=== PATIENT | female | born 2000 | race Caucasian/White ===

== ENCOUNTER 2020-12-29 17:35 | Observation (INO) | payer MEDICAID ==
[~2020-12-29] VITALS: Ht 167 cm; Wt 62.1 kg
== END 2020-12-29 18:35 ==
LOC: MLD 17:35
PROVIDERS: ADMIT Obstetrics & Gynecology; ATTEND Obstetrics & Gynecology
DX: O26.893 Other specified pregnancy related conditions, third trimester (principal); R07.89 Other chest pain; O99.891 Other specified diseases and conditions complicating pregnancy; M25.511 Pain in right shoulder; M25.512 Pain in left shoulder; M79.641 Pain in right hand; M79.642 Pain in left hand; M79.602 Pain in left arm; M79.601 Pain in right arm; Z3A.30 30 weeks gestation of pregnancy
CPT/HCPCS: 59025; 81000; G0378

== ENCOUNTER 2020-12-29 18:40 | Emergency (ER) | payer MEDICAID ==
[~2020-12-29] VITALS: Ht 170.2 cm; Wt 69.9 kg
--- NOTE | 2020-12-29 18:40 | NUR ---
Patient transferred to bed 5 via wheelchair from L&D. RN evaluating the patient at bedside.
[2020-12-29 18:52] VITALS: BP 114/71
--- NOTE | 2020-12-29 18:54 | NUR ---
Dr. Degroot is evaluating the patient at bedside.
--- NOTE | 2020-12-29 18:57 | NUR ---
Dr. Degroot at bedside for US.
--- NOTE | 2020-12-29 19:20 | NUR ---
EKG PERFORMED AT BEDSIDE. EKG READS SINUS RHYTHM @ 83
[2020-12-29] MEDS ORDERED: ACETAMINOPHEN EXTRA STRENGTH 500 MG TAB PO ONE (19:25)
--- NOTE | 2020-12-29 19:28 | NUR ---
PT IS A 20 Y.O. FEMALE BIB SELF W/ C/O OF CHEST PAIN. PT STATES THE PAIN IS CURRENTLY 2/10 ON THE PAIN SCALE. PAIN IS NOT RADIATING. PT DENIES SOB OR DIFFICULTY BREATHING. DENIES ANY N/V/D. BREATHING IS UNLABORED. PT IS 28 WEEKS . DENIES ANY PMH. NKA. WILL CONTINUE TO MONITOR.
--- NOTE | 2020-12-29 20:35 | NUR ---
PT DENIES ANY PAIN. BREATHING IS UNLABORED. PT IS STABLE. NO COMPLAINTS AT THIS TIME. PT IS BEING DISCHARGED HOME. FAMILY IS WAITING IN THE CAR OUTSIDE.
[2020-12-29 20:36] VITALS: BP 114/71
--- NOTE | 2020-12-29 20:36 | NUR ---
Patient discharged with v/s stable. Written and verbal after care instructions given and explained. Patient verbalized understanding. Ambulatory with steady gait. All questions addressed prior to discharge. Advised to follow up with PMD.
== END 2020-12-29 20:36 | disposition home or self-care (01) ==
LOC: MED 18:40
DX: O26.893 Other specified pregnancy related conditions, third trimester (principal); R07.9 Chest pain, unspecified; Z3A.28 28 weeks gestation of pregnancy
CPT/HCPCS: 93005; 99284

== ENCOUNTER 2021-02-18 10:05 | Observation (INO) | payer MEDICAID ==
[~2021-02-18] VITALS: Ht 162 cm; Wt 75.3 kg
[2021-02-18 10:30] VITALS: BP 123/74
[2021-02-18] MEDS ORDERED: PNV91TAB8 PO (11:18)
[2021-03-11] MEDS ORDERED: NITR100C7 PO (23:23)
== END 2021-02-18 11:25 | disposition home or self-care (01) ==
LOC: MLD 10:05
PROVIDERS: ADMIT Obstetrics & Gynecology; ATTEND Obstetrics & Gynecology
DX: O26.893 Other specified pregnancy related conditions, third trimester (principal); R10.9 Unspecified abdominal pain; O99.891 Other specified diseases and conditions complicating pregnancy; M54.9 Dorsalgia, unspecified; Z3A.38 38 weeks gestation of pregnancy
CPT/HCPCS: 59025; G0378

== ENCOUNTER 2021-03-09 07:55 | Inpatient (IN) | payer OTHER, SELFPAY ==
[~2021-03-09] VITALS: Ht 162.6 cm; Wt 72.1 kg
[~2021-03-09 07:55] MED LIST: PNV91TAB8 PO
[2021-03-09 08:12] VITALS: BP 101/57
[2021-03-09] MEDS ORDERED: ACETAMINOPHEN EXTRA STRENGTH 500 MG TAB PO ONE (08:20)
--- NOTE | 2021-03-09 08:23 | NUR ---
Patient to bed 10. RN evaluating the patient at bedside.
--- NOTE | 2021-03-09 08:30 | NUR ---
UA sample walked to lab, handed to CPT. Derrick
--- NOTE | 2021-03-09 08:30 | NUR ---
PATIENT TO BED 10, REPORTS C/S 10 DAYS AGO AT [facility], DEVELOPED RIGHT SIDED BACK PAIN YESTERDAY ACCOMPANIED BY FEVER. DENIES BURNING OR URGENCY OF URINATION, C SECTION WOUND IS CLEAN AND DRY, DENIES ANY VAG DISCHARGE. SKIN IS HOT AND DRY, RESP EVEN AND UNLABORED, ABDOMEN IS SOFT, SUPPORTED BY BY ELASTIC BINDER. PATIENT IS AMBULATORY AND INDEPENDENT FOR CARE. DR AT BEDSIDE FOR EVAL, IV ACCESS OBTAINED, LABS AND CULTURES OBTAINED. DENIES MEDICAL HISTORY. BED IS IN LOW AND LOCKED POSITION, ONE SIDE RAIL UP FOR SAFETY.
[2021-03-09] MEDS ORDERED: KETOROLAC 15 MG/ML VIAL IVP ONE (08:45)
[2021-03-09] MEDS ORDERED: NACL 0.9% 1,000 ML IV ONE (08:45)
--- NOTE | 2021-03-09 08:53 | NUR ---
solar field service technician at bedside.
--- NOTE | 2021-03-09 09:10 | NUR ---
Blood sample and cultures collected ,walked to lab and handed to CPT. Derrick
[2021-03-09 09:19] LABS: APPEARANCE,URINE CLEAR (CLEAR); COLOR,URINE YELLOW (YELLOW)
[2021-03-09 09:20] LABS: BLOOD, URINE 3+ (NEGATIVE); PH,URINE 5.5 (5.0-9.0); UGLUCOSE NEGATIVE (NEGATIVE)
[2021-03-09 09:21] LABS: BILIRUBIN,URINE NEGATIVE (NEGATIVE); LEUKOCYTE ESTERASE ,URINE 2+ (NEGATIVE); NITRITE, URINE POSITIVE (NEGATIVE)
[2021-03-09 09:29] LABS: RBC,URINE 11-20 (MOD) /HPF (0-5); WBC,URINE >25 (MANY) /HPF (0-5)
[2021-03-09 09:33] LABS: BASOPHILS % (AUTO) 0.1 % (0.0-2.0); EOSINOPHILS # (AUTO) 0.1 K/uL (0-0.4); EOSINOPHILS % (AUTO) 0.5 % (0.0-4.0); HEMATOCRIT 39.4 % (36-48); HEMOGLOBIN 13.1 g/dL (12.0-16.0); LYMPHOCYTES # (AUTO) 1.1 K/uL (2.5-16.5); LYMPHOCYTES % (AUTO) 4.8 % (20.5-51.1); MEAN CORPUSCULAR HEMOGLOBIN 32 pg (27-31); MEAN CORPUSCULAR HGB CONC 33 g/dL (33-37); MEAN CORPUSCULAR VOLUME 94.5 fL (80-94); MONOCYTES # (AUTO) 1.8 K/uL (0.8-1.0); MONOCYTES % (AUTO) 8.2 % (1.7-9.3); NEUTROPHILS # (AUTO) 19.4 K/uL (1.8-7.7); NEUTROPHILS % (AUTO) 86.4 % (42.2-75.2); PLATELET COUNT (AUTO) 256 K/uL (140-450); RED BLOOD CELL COUNT(AUTO) 4.16 MIL/uL (4.20-5.40); RED CELL DISTRIBUTION WIDTH 13.3 % (11.6-13.7); WHITE BLOOD COUNT (AUTO) 22.4 K/uL (4.8-10.8)
[2021-03-09] MEDS ORDERED: cefTRIAXone 1,000 MG VIAL ONE (09:37)
--- NOTE | 2021-03-09 09:45 | NUR ---
TEMP NOW 98.6, IVF 0.9%NS INFUSING W/O, IV ABX AND TORADOL IVP ADMINISTERED. OBSERVED FOR NADR, NONE NOTED. PATIENT REPORTS FEELING BETTER AT THIS MOMENT.
[2021-03-09 09:48] LABS: ALBUMIN 3.4 g/dL (3.4-5.0); ANION GAP 17.3 (8-16); CARBON DIOXIDE 21.1 mmol/L (21-32); CREATININE 0.9 mg/dL (0.6-1.3); POTASSIUM 3.4 mmol/L (3.5-5.1); TOTAL BILIRUBIN 0.5 mg/dL (0.0-1.0)
[2021-03-09] MEDS ORDERED: NACL 0.9% 1,500 ML IV ONE (10:10)
[2021-03-09 10:34] LABS: PROTHROMBIN TIME 11.5 secs (10.8-13.4)
[2021-03-09] MEDS: NACL 0.9% 1,000 ML IV SCH (11:35)
[2021-03-09] MEDS ORDERED: POTASSIUM CHLORIDE 10 MEQ TABER PO PRN (11:35)
[2021-03-09] MEDS ORDERED: MAGNESIUM OXIDE 400 MG TAB PO PRN (11:35)
[2021-03-09] MEDS ORDERED: HYDROcodone/APAP 5/325 MG 1 TAB TAB PO PRN (11:35)
[2021-03-09] MEDS ORDERED: ONDANSETRON 4 MG/2 ML VIAL IVP PRN (11:35)
[2021-03-09] MEDS ORDERED: KCL 20 MEQ/WATER INJ PREMIX 200 ML IV PRN (11:35)
[2021-03-09] MEDS ORDERED: MORPHINE SULFATE 4 MG/ML SYR IVP PRN (11:35)
[2021-03-09] MEDS ORDERED: MAG SULF 2000 MG/WATER PREMIX 50 ML IV PRN (11:35)
--- NOTE | 2021-03-09 11:55 | NUR ---
ANA MILLER 18 SPEC WALKED TO LAB. PATIENT IS RESTING QUIETLY VSS, IS CURRENTLY AFEBRILE. IVF INFUSING TO CLEAR IV SITE, DENIES PAIN AT THIS TIME.
--- NOTE | 2021-03-09 13:00 | NUR ---
PATIENT BROUGHT BY ED NURSE IN WHEELCHAIR. PATIENT IS ALERT AND ORIENTED, ABLE TO MAKE NEEDS KNOWN. BREATHING EVEN AND UNLABORED ON RA. R AC 20G SL. DENIES PAIN AT THIS TIME. VITALS: TEMP 97.5 DEGREES FAHRENHEIT, BP 112/71, RR 18, HR 80. ORIENTED TO ROOM, CALL LIGHT WITHIN REACH, BED IN LOW POSITION. SAFETY MEASURES IN PLACE.
--- NOTE | 2021-03-09 13:02 | NUR ---
REPORT GIVEN TO BERNARDO VALDEZ
--- NOTE | 2021-03-09 13:18 | NUR ---
ADMITTED TO ROOM 119A MS. PT STABLE, ALL BELONGINGS WITH PT.
--- NOTE | 2021-03-09 15:12 | NUR ---
PATIENT REQUESTING TO LEAVE AMA, CONDITION AND RISKS EXPLAINED. PATIENT CONTINUES TO WANT TO GO HOME AMA. NOTIFIED.
[2021-03-09] MEDS: ACETAMINOPHEN 325 MG TAB PO PRN (15:59)
--- NOTE | 2021-03-09 15:59 | NUR ---
PRN TYLENOL ADMINISTERED FOR TEMP OF 101 DEGREES FAHRENHEIT. MED EDUCATION PROVIDED, PATIENT VERBALIZES UNDERSTANDING.
--- NOTE | 2021-03-09 17:21 | NUR ---
PRN MORPHINE ADMINISTERED FOR BACK PAIN, SEE PAIN ASSESSMENT NOTES. MED EDUCATION PROVIDED, PATIENT VERBALIZES UNDERSTANDING.
--- NOTE | 2021-03-09 19:30 | NUR ---
RECEIVED REPORT FROM AM SHIFT. PT AAOX4, VOICES NO C/O PAIN OR DISCOMFORT. WATCHING TV.
[2021-03-09 20:05] VITALS: BP 127/81
--- NOTE | 2021-03-09 23:30 | NUR ---
OOB TO BRP W/ STEADY GAIT. ASSESSED IVF INFUSION, PT DOES NOT WANT AN IV RESTART, IV AC LOCATION IS PARTIALLY OCCLUDING FLOW. PT EDUCATION ON ABSTINENCE, POST , TO AVOID INFECTION. VERBALIZED UNDERSTANDING AND ASKED QUESTIONS. WILL CONT TO MONITOR IV SITE.
[2021-03-10] MEDS: NACL 0.9% 1,000 ML IV SCH ×2 (00:05→03:26)
[2021-03-10 01:30] VITALS: BP 129/84
--- NOTE | 2021-03-10 01:30 | NUR ---
TEMP 99.5 ENC PO FLUID, GAVE CRANBERRY/ APPLE JUICE, A CUP OF WARM TEA W/ CRACKERS. EXPLAINED THE IMPORTANCE OF A FUNCTIONAL IV SITE, FOR THERAPEUTIC PURPOSE IN SUDANESE. PT VERBALIZED UNDERSTANDING AND AGREES TO NEW IV SITE.
[2021-03-10] MEDS: ACETAMINOPHEN 325 MG TAB PO PRN (01:32)
--- NOTE | 2021-03-10 02:30 | NUR ---
NEW IV SITED TO L MID FA, 22G. PT TOLERATED WELL, SITE INTACT W/O S/S OF INFILTRATION, POS FLUSH. OLD IV SITE (R AC) D/C'D W/ CATH TIP INTACT. IVF INFUSING AT 80 ML/HR W/ GOOD FLOW. PT TEMP IMPROVED TO 98.1 AT PRESENT
--- NOTE | 2021-03-10 05:00 | NUR ---
ON ROUNDS PT ASLEEP. RESP REG NON-LABORED. IVF INFUSING WELL. NO C/O PAIN OR DISCOMFORT PAIN MED EFFECTIVE.
[2021-03-10 05:27] LABS: BASOPHILS % (AUTO) 0.1 % (0.0-2.0); EOSINOPHILS # (AUTO) 0.2 K/uL (0-0.4); EOSINOPHILS % (AUTO) 1.3 % (0.0-4.0); HEMATOCRIT 36.4 % (36-48); HEMOGLOBIN 12.1 g/dL (12.0-16.0); LYMPHOCYTES # (AUTO) 1.8 K/uL (2.5-16.5); LYMPHOCYTES % (AUTO) 9.8 % (20.5-51.1); MEAN CORPUSCULAR HEMOGLOBIN 31 pg (27-31); MEAN CORPUSCULAR HGB CONC 33 g/dL (33-37); MEAN CORPUSCULAR VOLUME 94.6 fL (80-94); MONOCYTES # (AUTO) 1.7 K/uL (0.8-1.0); MONOCYTES % (AUTO) 9.5 % (1.7-9.3); NEUTROPHILS # (AUTO) 14.4 K/uL (1.8-7.7); NEUTROPHILS % (AUTO) 79.3 % (42.2-75.2); PLATELET COUNT (AUTO) 229 K/uL (140-450); RED BLOOD CELL COUNT(AUTO) 3.85 MIL/uL (4.20-5.40); WHITE BLOOD COUNT (AUTO) 18.1 K/uL (4.8-10.8)
[2021-03-10 05:49] LABS: PROTHROMBIN TIME 11.3 secs (10.8-13.4)
[2021-03-10 06:18] LABS: ALBUMIN 2.8 g/dL (3.4-5.0); ANION GAP 15.5 (8-16); CARBON DIOXIDE 20.8 mmol/L (21-32); CREATININE 0.6 mg/dL (0.6-1.3); MAGNESIUM 1.7 mg/dL (1.8-2.4); POTASSIUM 3.3 mmol/L (3.5-5.1); TOTAL BILIRUBIN 0.4 mg/dL (0.0-1.0)
--- NOTE | 2021-03-10 06:30 | NUR ---
ON ROUNDS PT ASLEEP EASILY AWAKENED, VOICES NO C/O PAIN OR DISCOMFORT.
--- NOTE | 2021-03-10 07:30 | NUR ---
PT RECEIVED FROM ASSOCIATE SOFTWARE DEVELOPER RN. PT RESTING IN BED. BREATHING IS SYMMETRICAL AND UNLABORED. EYES CLOSED. NO S.SX OF DISTRESS AT THIS TIME. CALL LIGHT WITHIN REACH. ALL SAFETY MEASURES ARE IN PLACE
[2021-03-10 08:00] VITALS: BP 113/71
--- NOTE | 2021-03-10 08:54 | NUR ---
MEDICATIONS GIVEN PER MD ORDER. PT EDUCATED VERBALIZED UNDERSTANDING. PT REFUSED COLACE. PT EDUCATED AND VERBALIZED UNDERSTANDING
--- NOTE | 2021-03-10 08:55 | NUR ---
MG 1.7 MG REPLACED, K+ 3.3. K+ REPLACED
[2021-03-10] MEDS ORDERED: DOCUSATE SODIUM 100 MG GELCAP PO SCH (09:00)
--- NOTE | 2021-03-10 09:03 | NUR ---
PATIENT HAS BEEN SCREENED AND CATEGORIZED LOW NUTRITION RISK. PATIENT WILL BE SEEN WITHIN 7 DAYS OF ADMISSION. 03/15/[address]
--- NOTE | 2021-03-10 10:38 | NUR ---
PT COMPLAINS SHE WANTS TO GO HOME. PATIENT EDUCATED AND VERBALIZED UNDERSTANDING. AWARE
--- NOTE | 2021-03-10 11:39 | NUR ---
PT RESTING IN BED. NO S/SX OF DISTRESS AT THIS TIME.
[2021-03-10] MEDS ORDERED: CEPH-588 PO (12:13)
[2021-03-10 12:40] VITALS: BP 113/71
--- NOTE | 2021-03-10 13:25 | NUR ---
PT DISCHARGE INSTRUCTIONS COMPLETE. PT EDUCATED AND VERBALIZED UNDERSTANDING. NO S/SX OF DISTRESS AT THIS TIME. SPOUSE AT BEDSIDE
--- NOTE | 2021-03-10 14:05 | NUR ---
PT LEFT UNIT WALKING . PT REFUSED WHEEL CHAIR. PT AMBULATED OUT OF HOSPITAL ONTO PRIVATE VEHICLE IN STABLE CONDITION. IV CANULA REMOVED CANULA INTACT.
--- NOTE | 2021-03-10 14:59 | NUR ---
DC PLANNING: SPOKE WITH PATIENT AT BEDSIDE WITH [employer] ACTING RENT AND MISCELLANEOUS REMITTANCE CLERK. PATIENT LIVES IN A SINGLE STORY HOUSE WITH HER SPOUSE, IN LAWS AND OTHERS PER HER STATEMENT. SEES HER PCP SHAYLA BOCANEGRA IN [place], LAST SAW HER IN JANUARY. NO PRIOR DME OR HOME HEALTH, PER [facility] PATIENT HAS TO MAKE HER F/U APPT., PATIENT NOTIFIED. NO DC NEEDS, CM WILL CONTINUE TO FOLLOW FOR NEEDS.
[2021-03-11] MEDS ORDERED: NITR100C7 PO (23:23)
== END 2021-03-10 14:05 | disposition home or self-care (01) | DRG 561 ==
LOC: MED 07:55 → MTU 11:31
PROVIDERS: ADMIT Hospitalist; ATTEND Hospitalist
DX: O85 Puerperal sepsis (principal); Z20.822 Contact with and (suspected) exposure to COVID-19
CPT/HCPCS: 36415; 71045; 76770; 80053; 81001; 83036; 83605; 83690; 83735; 85025; 85610; 87040; 87081; 87086; 96361; 96365; 96375; 99291; J0696; J1885; J2270; J2405; J7060

== ENCOUNTER 2021-04-08 11:21 | Emergency (ER) | payer OTHER, SELFPAY ==
[~2021-04-08] VITALS: Ht 162.6 cm; Wt 63.0 kg
[~2021-04-08 11:21] MED LIST changes: +NITR100C7 PO
[2021-04-08 11:28] VITALS: BP 103/67
--- NOTE | 2021-04-08 11:34 | NUR ---
TENT 1
--- NOTE | 2021-04-08 11:35 | NUR ---
BIB C/O FEVER X YESTERDAY. TEMP 97.3 AT THIS TIME. PMH: C SECTION 1 MONTH AGO
[2021-04-08 12:40] VITALS: BP 103/67
--- NOTE | 2021-04-08 12:40 | NUR ---
PATIENT LEFT WITHOUT BEING SEEN BY . NO FURTHER CARE PROVIDED FOR PATIENT.
== END 2021-04-08 12:40 | disposition left against medical advice (07) ==
LOC: MED 11:21
DX: R50.9 Fever, unspecified (principal); Z53.21 Procedure and treatment not carried out due to patient leaving prior to being seen by health care provider

== ENCOUNTER 2021-06-29 19:52 | Emergency (ER) | payer OTHER, SELFPAY ==
[~2021-06-29] VITALS: Ht 160 cm; Wt 62.1 kg
--- NOTE | 2021-06-29 20:01 | NUR ---
NAME WAS CALLED IN LOBBY AND OUTSIDE, NO ANSWER AT THIS TIME
--- NOTE | 2021-06-29 20:10 | NUR ---
CALLED PT ONE MORE TIME IN LOBBY AND OUTSIDE, NO ANSWER. LWBS AT THIS TIME.
[2021-06-29 20:15] VITALS: BP 127/70
--- NOTE | 2021-06-29 20:21 | NUR ---
PT AMBULATED TO BED 10.
--- NOTE | 2021-06-29 20:22 | NUR ---
PT MOVED TO BED 07.
[2021-06-29] MEDS ORDERED: DICYCLOMINE HCL LIQUID 20 MG, ALUMINUM HYD/MAG/SIMETHICONE 30 ML, LIDOCAINE VISCOUS 2% ... PO ONE ×3 (20:30)
[2021-06-29] MEDS ORDERED: KETOROLAC 30 MG/ML VIAL IM ONE (20:30)
[2021-06-29] MEDS ORDERED: ALUMINUM HYD/MAG/SIMETHICONE 30 ML UDC ONE ×2 (20:38→20:51)
[2021-06-29] MEDS ORDERED: DICYCLOMINE HCL LIQUID 10 MG/5 ML UDC ONE ×2 (20:39→20:51)
[2021-06-29 21:29] LABS: ALBUMIN 3.9 g/dL (3.4-5.0); ANION GAP 12.3 (8-16); CARBON DIOXIDE 25.4 mmol/L (21-32); CREATININE 0.6 mg/dL (0.6-1.3); POTASSIUM 3.7 mmol/L (3.5-5.1); TOTAL BILIRUBIN 0.5 mg/dL (0.0-1.0)
[2021-06-29] MEDS ORDERED: ACET-10509 PO (21:50)
[2021-06-29] MEDS ORDERED: MAG-27 PO (21:50)
== END 2021-06-29 22:20 | disposition home or self-care (01) ==
LOC: MED 19:52
DX: R10.11 Right upper quadrant pain (principal); R10.12 Left upper quadrant pain; Z79.899 Other long term (current) drug therapy; Z98.890 Other specified postprocedural states
CPT/HCPCS: 36415; 80053; 81002; 81025; 83690; 96372; 99283; J1885

== ENCOUNTER 2022-06-27 19:50 | Emergency (ER) | payer OTHER ==
[~2022-06-27] VITALS: Ht 160 cm; Wt 60.8 kg
[~2022-06-27 19:50] MED LIST changes: +ACET-10509 PO; +MAG-27 PO
--- NOTE | 2022-06-27 20:13 | NUR ---
PATIENT PROVIDED WITH CUP TO PROVIDE URINE SAMPLE
[2022-06-27 20:15] VITALS: BP 115/70
--- NOTE | 2022-06-27 20:15 | NUR ---
PATIENT AMBULATED BACK TO [facility] IN STABLE CONDITION
[2022-06-27 22:03] LABS: BASOPHILS % (AUTO) 0.2 % (0.0-2.0); EOSINOPHILS # (AUTO) 1.1 K/uL (0-0.4); EOSINOPHILS % (AUTO) 11.4 % (0.0-4.0); HEMATOCRIT 38.1 % (36-48); HEMOGLOBIN 13.2 g/dL (12.0-16.0); LYMPHOCYTES % (AUTO) 19.5 % (20.5-51.1); MEAN CORPUSCULAR HEMOGLOBIN 31 pg (27-31); MEAN CORPUSCULAR HGB CONC 35 g/dL (33-37); MEAN CORPUSCULAR VOLUME 89.4 fL (80-94); MONOCYTES % (AUTO) 9.6 % (1.7-9.3); NEUTROPHILS % (AUTO) 59.3 % (42.2-75.2); PLATELET COUNT (AUTO) 242 K/uL (140-450); RED BLOOD CELL COUNT(AUTO) 4.26 MIL/uL (4.20-5.40); RED CELL DISTRIBUTION WIDTH 12.8 % (11.6-13.7); WHITE BLOOD COUNT (AUTO) 10.1 K/uL (4.8-10.8)
[2022-06-27] MEDS ORDERED: CEPH-588 PO (22:19)
[2022-06-27] MEDS ORDERED: PREN-500 PO (22:19)
[2022-06-27 22:22] LABS: ALBUMIN 3.8 g/dL (3.4-5.0); ANION GAP 12.3 (8-16); CARBON DIOXIDE 25.1 mmol/L (21-32); CREATININE 0.6 mg/dL (0.6-1.3); POTASSIUM 3.4 mmol/L (3.5-5.1); TOTAL BILIRUBIN 0.4 mg/dL (0.0-1.0)
--- NOTE | 2022-06-28 01:01 | NUR ---
PATIENT ELOPED FROM FACILITY. DISCHARGE INSTRUCTIONS NOT GIVEN TO PATIENT. DR. BRASHER NOTIFIED.
== END 2022-06-28 01:01 | disposition left against medical advice (07) ==
LOC: MED 19:50
DX: O26.891 Other specified pregnancy related conditions, first trimester (principal); Z3A.01 Less than 8 weeks gestation of pregnancy
CPT/HCPCS: 36415; 76705; 76801; 76830; 80053; 81002; 81025; 83690; 84702; 85025; 99284; Q0092

== ENCOUNTER 2022-11-10 20:45 | Observation (INO) | payer OTHER ==
[~2022-11-10] VITALS: Ht 165.1 cm; Wt 66.7 kg
[~2022-11-10 20:45] MED LIST changes: +CEPH-588 PO; +PREN-500 PO
[2022-11-10 20:58] VITALS: BP 109/64
[2022-11-10] MEDS ORDERED: PNV1TABL5 PO (21:47)
== END 2022-11-10 22:10 | disposition home or self-care (01) ==
LOC: MLD 20:45
PROVIDERS: ADMIT Obstetrics & Gynecology; ATTEND Obstetrics & Gynecology
DX: O26.892 Other specified pregnancy related conditions, second trimester (principal); R10.9 Unspecified abdominal pain; R10.2 Pelvic and perineal pain; Z3A.27 27 weeks gestation of pregnancy
CPT/HCPCS: 59025; 81000; G0378; G0379